=== PATIENT | male | born 1960 | race Caucasian/White ===

== ENCOUNTER 2021-06-03 19:08 | Emergency (ER) | payer MEDICAID ==
[~2021-06-03] VITALS: Ht 170.2 cm; Wt 78.0 kg
[2021-06-03] MEDS ORDERED: LISINOPRIL5 MG PO (19:24)
[2021-06-03] MEDS ORDERED: LIPITOR40 MG PO (19:24)
[2021-06-03] MEDS ORDERED: HUMIRA40 MG/0.4 SQ (19:24)
[2021-06-03] MEDS ORDERED: ELIQUIS5 MG PO (22:48)
== END 2021-06-03 23:37 | disposition home or self-care (01) ==
LOC: ED 19:08
DX: I26.99 Other pulmonary embolism without acute cor pulmonale (principal); I10 Essential (primary) hypertension; Z79.899 Other long term (current) drug therapy
CPT/HCPCS: 36415; 71046; 71260; 74176; 80053; 81001; 83690; 85025; 85379; 85610; 85730; 96372; 99284-25; J1650; J7030; Q9967